=== PATIENT | female | born 1955 | race Caucasian/White ===

== ENCOUNTER → 2016-12-26 | Day surgery (SDC) | payer OTHER ==
[~2016-12-26] MED LIST: ACET325T11 PO; ASPI81TA45 PO; BUPIVACAINE HCL PF 0.25% 30 ML VIAL ONE; CLINDAMYCIN PHOS 600 MG/4 ML VIAL ONE; DEXAMETHASONE SOD PHOS 4 MG/ML VIAL IV ONE; FISHCAP PO; KETOROLAC TROMETHAMINE 30 MG/ML (IVP) VIAL IV PUSH ONE; LACTATED RINGER'S 1000 ML INJ 1,000 ML ONE; LIDOCAINE HCL 1% PF 5 ML AMPULE OTHER ONE; MULT-65 PO; ONDANSETRON HCL 4 MG/2 ML VIAL IV PUSH ONE; PROPOFOL 200 MG/20 ML AMP IV ONE; TRIAMCINOLONE ACETONIDE 40 MG/ML VIAL ONE
--- NOTE | 2016-12-27 09:35 | MP ---
cc: ISAEL REECE DATE OF SURGERY 12/26/2016 PREOPERATIVE DIAGNOSIS Left foot plantar fasciitis. POSTOPERATIVE DIAGNOSIS Left foot plantar fasciitis. PROCEDURE PERFORMED Plantar fasciotomy with [place] micro-debridement, insertion of medial plantar fascial band left foot. SPECIMEN None. ESTIMATED BLOOD LOSS Less than 30 mL. ANESTHESIA General with local 20 cc of 0.25% Marcaine plain. TOURNIQUET 8 minutes at a setting of 215 mmHg about the patient's left ankle. PLAN OF ACTIVITY PACU, then DC home once stable per Same-Day Surgery criteria. JUSTIFICATION OF PROCEDURE This is a 61-year-old female with a history of chronic plantar fasciitis resistant to injections and conservative treatment. She wished to move forward with surgical intervention. We devised a plan to move forward with micro-fasciotomy with [place] debridement versus endoscopic partial plantar fasciotomy. She chose to move forward with the fasciotomy with [place] debridement. No guarantees were given or implied regarding the outcome. PROCEDURE IN DETAIL Under mild sedation the patient was brought into the operating room, placed on the operating table in the supine position. Following the induction of general anesthesia, local anesthesia was obtained about the hindfoot utilizing standard block fashion. The patient's left foot was then scrubbed, prepped and draped in the usual aseptic fashion. The foot was elevated, exsanguinated and the previously placed midcalf tourniquet was inflated to 215 mmmHg. A grid pattern was made across the insertional medial plantar fascial area measuring approximately 4 cm x 6 cm. Utilizing a skin scribe a grid pattern was then made with multiple spaced out markings approximately 6-8 mm apart. Then this was followed by the introduction of a K-wire that pierced through the skin, through the adipose and down to the fascia completing the fasciotomy. Next, the [place] micro-debridement wand was deployed at first feeling the plantar fascia. It was then deployed again, going through the fascia and then into the deep portion. This is on level 4. [address] in approximately 30 holes of the plantar fascia of the foot. A bandage placed, tourniquet decreased. Prompt hyperemic response to the digits with minimal bleeding at the surgery site. The patient was transferred from OR to PACU with all vital signs stable. She will stretch, ice, elevate, partial weight-bear within a controlled ankle motion boot and follow up within 3-5 days. TIM Howell/NINA /4:41 PM /9:18 AM
== END | disposition home or self-care (01) ==
LOC: ESDC 12:45
PROVIDERS: ATTEND Podiatrist Foot & Ankle Surgery
DX: M72.2 Plantar fascial fibromatosis (principal)
CPT/HCPCS: 01470; 28008; J1100; J1885; J2405; J3010; J7120; J3301